=== PATIENT | female | born 1995 | race Caucasian/White ===

== ENCOUNTER 2024-10-29 13:13 | Emergency (ER) | payer MEDICAID, SELFPAY ==
[2024-10-29 13:22] VITALS: BP 104/77; PULSE 92; RESP 16; TEMP 36.5; O2SAT 98
--- NOTE | 2024-10-29 13:28 | ED.GENADUL_ITS ---
Discharge Plan Discharge Details Chief Complaint: FlankPain Primary Care Provider: None,None ED Provider: Boris Johnson Home Meds and New Rx's Prescriptions: No Action Mirena 21 mcg/24hr (up to 8 yrs) 52 mg intrauterine device 1 device intrauterine ONCE Rx Instructions: as a single dose HPI General Date/Time Provider Initiated Documentation: 10/29/24 13:28 . HPI Narrative: 28 year-old female presents to ED today by POV/ambulating with her and children with a chief complaint of LUQ abdominal pain, worse laying on her R side and worse with deep breathing with onset since . Quality described as lower abdominal pain just under the rib cage, no radiation to nausea/vomiting, bowel changes, chest pressure, shortness of breath, dysuria, flank pain, numbness/tingling. Severity is described as moderate. Palliating factors include nothing specific beyond OTC analgesics. Provoking factors include nothing specific. Events leading up to the incident/Associated Symptoms: Patient is on hormonal control. Patient not anticoagulated. Related Data Home Medications ?Medication ?Instructions ?Recorded ?Confirmed levonorgestrel (Mirena) 1 device intrauterine ONCE 0 10/29/24 10/29/24 Allergies Allergy/AdvReac Type Severity Reaction Status Date / Time Penicillins Allergy rash Verified 10/29/24 13:24 General Stated Complaint: FlankPain MAGDALENA: 3 Review of Systems All systems reviewed & are unremarkable except as noted in HPI and below Exam Narrative Exam Narrative: GENERAL APPEARANCE: Well-nourished, non-toxic, awake and alert, atraumatic, no acute distress. SKIN: Warm, pink, dry, intact, without rashes/lesions/ulcerations. HEAD: Normocephalic, atraumatic, normal hair distribution for gender/age. EYES: Normal conjunctiva, no exudates on lids/lashes. ENT: Nares patent, no circumoral cyanosis, no facial swelling NECK: Supple, trachea midline, painless cervical ROM. LUNGS/CHEST: Lungs CTA bilaterally- no rhonchi/rales/wheezes diffusely, non- labored respirations, normal A/P diameter, symmetrical expansion, no chest wall deformity HEART (CV/PV): Regular rate and rhythm without murmur, no peripheral edema, no JVD. ABDOMEN: Soft, non-distended, no guarding, LUQ tenderness, L CVA tenderness to percussion, negative Ch's, no Rovsing's. MSK: Normal ROM, no swelling/deformity to bilateral UEs or LEs, moving all extremities without weakness, no cyanosis, spine midline without tenderness, normal curvature. NEURO: Mental Status AAOx4 - alert to person, place, time, events No facial droop, no forehead involvement. Motor: No focal weakness - strength 5/5 in bilateral UEs and LEs, proximal and distal, symmetric. Sensory: sensation intact to light touch globally. Gait normal: patient ambulated without ataxia into ED room. PSYCH: euthymic, cooperative, pleasant, appropriate speech Course Vital Signs Vital signs: Vital Signs Temperature 36.5 C 10/29/24 13:22 Pulse 92 H 10/29/24 13:22 Respiratory Rate 16 10/29/24 13:22 Blood Pressure 104/77 10/29/24 13:22 Pulse Oximetry 98 10/29/24 13:22 Temperature 36.5 C 10/29/24 13:22 Temperature Source Oral 10/29/24 13:22 Pulse 92 H 10/29/24 13:22 Respiratory Rate 16 10/29/24 13:22 Blood Pressure 104/77 10/29/24 13:22 Blood Pressure Position Sitting 10/29/24 13:22 Pulse Oximetry 98 10/29/24 13:22 Oxygen Delivery Method Room Air 10/29/24 13:22 Oxygen Flow Rate 0 10/29/24 13:22 Pain Level 3 10/29/24 13:22 Medical Decision Making This dictation utilizes [id number] dictation software and may contain unedited grammatical errors. 28 year-old female presents to ED today by POV/ambulating with her and children with a chief complaint of LUQ abdominal pain, worse laying on her R side and worse with deep breathing with onset since . Quality described as lower abdominal pain just under the rib cage, no radiation to nausea/vomiting, bowel changes, chest pressure, shortness of breath, dysuria, flank pain, numbness/tingling. Severity is described as moderate. Palliating factors include nothing specific beyond OTC analgesics. Provoking factors include nothing specific. Events leading up to the incident/Associated Symptoms: Patient is on hormonal control. Patients' medical history: Negative, otherwise healthy. Family and social history: noncontributory. Pertinent exam findings / vital signs include LUQ tenderness, no crepitus to L lower ribs, no Rovsing's, negative Ch's sign, L CVA tenderness to percussion. Differential / pathologies of concern include Renal Colic, Gastroenteritis, Colitis, Diverticulitis, PE, Abdominal Wall Muscle Strain. Diagnostic studies of: -CBC, CMP, Lipase, Lactate, Upreg, D-dimer, UA, CRP/ESR, Magnesium, EKG, CT ABD /Pelvis w Contrast. - CBC shows no acute abnormality - CRP and ESR are negative - D-dimer negative - Lactate negative - CMP shows no electrolyte abnormalities, does show significant elevation of LFTs ALT greater than AST - Lipase negative - Magnesium within normal limits - UA is benign without any signs of infection - EKG shows sinus rhythm at 88 bpm with P waves followed by a narrow complex QRS, normal axis, some slight ST depression in V3 V4 with elevated J-point in V2, adding troponin- T-wave abnormality in V3 question artifact *Added troponin I- onset since single value - Tick Panel Pending - CT pending at shift-change. Added Webster-screen Interventions of: -None, declined APAP/NSAIDs. ED Course/Assessment/Plan: 28-year-old female presents with vague left upper quadrant abdominal pain ongoing since , its almost under the lower ribs on the axillary plane, worse with laying on her right side and worse with deep breathing, D-dimer negative do not suspect pulmonary embolism she is low risk on Wells. She has a T wave abnormality or inversion to V3 of her EKG but no evidence of Wellen syndrome with changes in other leads, has a nonspecific mild submillimeter de pression in V4 and V5. She has elevated LFTs ALT greater than AST, sent out hepatitis panel and a tick panel, patient is pending CT ABD/pelvis with contrast at shift change with likely discharge home with close follow-up and recheck of her LFTs in 1 to 2 weeks by PCP with a negative CT.. Disposition of Abdominal Pain of Unknown Cause, Elevated Transaminases. Patient verbalized understanding of the plan and return to ED criteria and engaged in shared decision making. Medical Records Medical records reviewed: Yes I reviewed the patient's medical records. Imaging Data Radiologic Study: Imaging: CT Scan My impression: CT Pending at shift-change. Lab Data Lab results reviewed: Yes I reviewed the patient's lab results. Labs: Laboratory Tests Range/Units 10/29/24 10/29/24 13:30 14:00 WBC (4.4-10.8) 10^3/uL 6.40 RBC (3.93-5.22) 10^6/uL 4.93 Hgb (11.2-15.7) g/dL 14.5 Hct (36.0-46.0) % 43.2 MCV (80-95) fL 88 MCH (27.0-33.0) pg 29.4 MCHC (32.0-36.0) % 33.6 RDW (11.7-14.6) % 11.8 Plt Count (130-400) 10^3/uL 278 MPV (8.0-11.0) fL 9.2 Immature Gran % % 0.3 Neutrophils % % 53.4 Lymphocytes % % 39.2 Monocytes % % 5.8 Eosinophils % % 0.8 Basophils % % 0.5 Nucleated RBC % (0.0-0.3) % 0.0 Absolute Neutrophils (1.2-6.7) 10^3/uL 3.42 Absolute Lymphocytes (1.2-3.4) 10^3/uL 2.51 Absolute Monocytes (0.1-0.8) 10^3/uL 0.37 Absolute Eosinophils (0.0-0.7) 10^3/uL 0.05 Absolute Basophils (0.0-0.2) 10^3/uL 0.03 ESR (0-20) mm/hr 13 D-Dimer (<500) ng/mlFEU 357 VBG Lactate (<or=2.0) mmol/L 1.1 Sodium (136-145) mmol/L 137 Potassium (3.5-5.1) mmol/L 3.8 Chloride (98-107) mmol/L 100 Carbon Dioxide (21.0-32.0) mmol/L 27.0 Anion Gap (3-11) mmol/L 10.0 BUN (7-18) mg/dL 9 Creatinine (0.55-1.02) mg/dL 0.6 Est GFR (CKD-EPI 2020) (mL/min/1.73m2) 126.87 Glucose (74-106) mg/dL 102 Calcium (8.5-10.1) mg/dL 9.0 Magnesium (1.8-2.4) mg/dL 2.1 Total Bilirubin (0.2-1.0) mg/dL 0.4 AST (15-37) U/L 109 H ALT (14-59) U/L 151 H Alkaline Phosphatase (46-116) U/L 140 H C-Reactive Protein (<or=0.5) mg/dL 0.77 H Total Protein (6.4-8.2) g/dL 8.2 Albumin (3.4-5.0) g/dL 4.2 Lipase (<78) U/L 58 Urine Color (Yellow) Yellow Urine Clarity (Clear) Clear Urine pH (5-8) 6.5 Ur Specific [place] (1.005-1.025) <= 1.005 Urine Protein (Neg-Trace) mg/dL Negative Urine Ketones (Negative) mg/dL Negative Urine Blood (Negative) Negative Urine Nitrite (Negative) Negative Urine Bilirubin (Negative) Negative Urine Urobilinogen (Up to 0.2) mg/dL 0.2 Ur Leukocyte Esterase (Negative) Negative Urine Glucose (Negative) mg/dL Negative PFSH Social History Smoking/Tobacco Use Status: Never Smoking risk assessment performed?: Yes Alcohol Intake: current Alcohol Intake frequency: a few times a week Alcohol type: wine Drug use: Never Substance use type: does not use Housing: house Do you feel safe at home: Yes Do you feel safe in your relationship?: Yes
[2024-10-29 14:02] LABS: Glucose Negative (Negative)
[2024-10-29 14:10] LABS: Abs Immature Grans 0.02 10^3/uL (0.0-0.06); HCT 43.2 % (36.0-46.0); HGB 14.5 g/dL (11.2-15.7); Immature Grans % 0.3 %; MCH 29.4 pg (27.0-33.0); MCHC 33.6 % (32.0-36.0); MCV 88 fL (80-95); MPV 9.2 fL (8.0-11.0); Platelet Count 278 10^3/uL (130-400); RBC 4.93 10^6/uL (3.93-5.22); RDW 11.8 % (11.7-14.6); RDW-SD 37.5 fL; WBC 6.40 10^3/uL (4.4-10.8)
[2024-10-29 14:12] LABS: ESR 13 mm/hr (0-20)
--- NOTE | 2024-10-29 14:15 | RT.EKG_ITS ---
APPROVED REPORT Exam: Resting ECG Reason for Exam: baseline/ screening Patient Location: E HR:88 bpm ECG Measurements Heart Rate 88 AXIS MT 144 P 47 QRSd 94 QRS 1 QT 363 T 34 QTc 439 Conclusion Sinus rhythm, rate 88 No interval abnormalities No STEMI Biphasic T wave vs artifact V3, no priors available for comparison Isolated T wave inversion V1
[2024-10-29 14:29] LABS: ALT 151 U/L (14-59); AST 109 U/L (15-37); Albumin 4.2 g/dL (3.4-5.0); Alkaline Phosphatase 140 U/L (46-116); Anion Gap 10.0 mmol/L (3-11); BUN 9 mg/dL (7-18); Bilirubin, Total 0.4 mg/dL (0.2-1.0); C-Reactive Protein 0.77 mg/dL (<or=0.5); CO2 27.0 mmol/L (21.0-32.0); Calcium 9.0 mg/dL (8.5-10.1); Chloride 100 mmol/L (98-107); Estimated GFR 126.87 (mL/min/1.73m2); Glucose 102 mg/dL (74-106); Lipase 58 U/L (<78); Magnesium 2.1 mg/dL (1.8-2.4); Potassium 3.8 mmol/L (3.5-5.1); Sodium 137 mmol/L (136-145); Total Protein 8.2 g/dL (6.4-8.2)
[2024-10-29 14:37] LABS: D-Dimer 357 ng/mlFEU (<500)
--- NOTE | 2024-10-29 15:00 | DI.CT_ITS ---
Exam(s) CT ABDOMEN PELVIS W EXAM: CT ABDOMEN PELVIS W CLINICAL HISTORY: LUQ tenderness, elev LFTs. TECHNIQUE: Imaging Protocol: Axial computed tomography images with coronal and sagittal reformatted images were created and reviewed CONTRAST MATERIAL: Intravenous: Omnipaque 350 Contrast volume:75 ml Oral: no COMPARISON: No exams were available for comparison FINDINGS: ABDOMEN and PELVIS: Lung Bases: No acute findings. Liver: Mild fatty infiltration no suspicious mass. Gallbladder and biliary tract: No radiodense calculus. No wall thickening or pericholecystic fluid. No biliary dilation. Pancreas: Normal density. No abnormal calcifications or inflammatory process. No evidence of mass. Spleen: Normal. Kidneys: Normal size, contour and axis. No radiodense stones. No obstructive uropathy. No suspicious masses seen. Retroaortic left renal vein. Adrenal glands: No masses seen. Vasculature: Abdominal aorta non-dilated. Soft tissues: Unremarkable. Bladder: No gross wall thickening. No calculi.No focal mass. Bowel: No obstruction. No bowel wall thickening. Appendix normal. Peritoneal cavity: No ascites. No focal collection. Some stranding fat anterior to the descending colon. No diverticular are visible. The findings could represent epiploic appendagitis no free air. Bones: Unremarkable for age. Reproductive organs: An IUD is seen within the uterus. The side arms appear to be appear positioned of outside of the fundus of the uterus. There is no surrounding inflammation. Lymph nodes: No pathologically enlarged lymph nodes. IMPRESSION:: Mild stranding in the fat anterior to the descending colon could indicate up pluck appendagitis. There is no evidence of diverticulosis. The colon is mainly free of stool. The IUD is positioned with the side arms outside of the fundus of the uterus. There are no surrounding inflammatory changes. The preliminary [facility] report was reviewed. RADIATION DOSE DELIVERED: Total DLP DATA REPOSITORY: All CT scans at this facility are submitted to the National Radiology Data Registry (NRDR) Dose Index Registry (DIR) with the [employer] (ACR). RADIATION OPTIMIZATION: All CT scans at this facility use at least one of these dose optimization techniques: automated exposure control; mA and/or kV adjustment per patient size (includes targeted exams where dose is matched to clinical indication); or iterative reconstruction.
[2024-10-29] MEDS: Omnipaque 350 MG/ML 100 ML BTL IJ (15:20)
[2024-10-29] MEDS: Normal Saline - Diluent 50 ML VIAL IJ (15:20)
[2024-10-29] MEDS: Normal Saline Flush 10 ML SYR IVP (15:21)
[2024-10-29 15:29] VITALS: BP 114/91; PULSE 109; TEMP 36.5
[2024-10-29 15:40] LABS: Troponin I < 4 ng/L (<or=51)
[2024-10-29 15:42] LABS: Mono Screening Negative (Negative)
--- NOTE | 2024-10-29 15:45 | RT.EKG_ITS ---
APPROVED REPORT Exam: Resting ECG Reason for Exam: luq pain Patient Location: E HR:95 bpm ECG Measurements Heart Rate 95 AXIS WA 144 P 46 QRSd 94 QRS 8 QT 353 T 46 QTc 444 Conclusion Sinus rhythm, rate 95 No interval abnormalities No STEMI Compared to priors, T wave changes in V3 have resolved and likely represented artifact
--- NOTE | 2024-10-29 16:31 | DI.[facility]_ITS ---
PROCEDURE INFORMATION: Exam: CT Abdomen And Pelvis With Contrast Exam date and time: 10/29/2024 3:14 PM Age: 28 years old Clinical indication: Other: Luq tenderness, elev lfts TECHNIQUE: Imaging protocol: Computed tomography of the abdomen and pelvis with contrast. Contrast material: 350; Contrast volume: 75 ml; Contrast route: INTRAVENOUS (IV); COMPARISON: No relevant prior studies available. FINDINGS: Liver: Mild fatty liver. Gallbladder and biliary ducts: Normal. No calcified stones. No ductal dilation. Pancreas: Normal. No ductal dilation. Spleen: Normal. No splenomegaly. Adrenal glands: Normal. No mass. Kidneys and ureters: Normal. No hydronephrosis. Stomach and bowel: There is soft tissue stranding in the mesenteric fat associated with the proximal descending colon series 8, images 42-47. There is no definite colonic wall thickening. No diverticular disease noted. No extraluminal fluid or air. Appendix: No evidence of appendicitis. Intraperitoneal space: See Stomach and bowel finding. Vasculature: Unremarkable. No abdominal aortic aneurysm. Lymph nodes: Unremarkable. No enlarged lymph nodes. Urinary bladder: Unremarkable as visualized. Reproductive: IUD in place. It projects beyond the fundal level series 8 images 79 and 80. Bones/joints: Unremarkable. No acute fracture. Soft tissues: Unremarkable. IMPRESSION: 1. IUD positioned partially outside the uterus beyond the fundus. 2. Appendagitis epiploica adjacent to the proximal aspect of the descending colon. Dictated and Authenticated by: Jud Morrow MD. Orderin Elizabeth Escalante MD
[2024-10-29 17:12] VITALS: BP 118/69; PULSE 78; RESP 16; O2SAT 98
[2024-10-30 19:12] LABS: Hepatitis A Antibody IgM Negative (Negative); Hepatitis C Ab w Rflx HCV PCR Negative (Negative)
[2024-10-31 10:55] LABS: Lyme Ab w Rflx to Lyme Confirm Negative (Negative)
[2024-11-01 21:51] LABS: B. miyamotoi PCR Negative (Negative); Babesia divergens/MO-1 Negative (Negative); Ehrlichia muris eauclairensis Negative (Negative)
== END 2024-10-29 17:13 | disposition home or self-care (01) ==
PROVIDERS: Physician Assistant; Emergency Provider Physician Assistant
DX: K63.89 Other specified diseases of intestine (principal); R79.89 Other specified abnormal findings of blood chemistry; R10.12 Left upper quadrant pain
CPT/HCPCS: 99284; 99285; 81025; 36415; 80053; 83690; 85652; 86704; 86709; 86803; 87340; 87798; 93005; 74177; 81003; 83605; 83735; 84484; 85025; 85379; 86140; 86308; 86618; 93010; J3490